=== PATIENT | female | born 1995 | race Caucasian/White ===

== ENCOUNTER 2021-02-21 20:37 | Emergency (ER) | payer OTHER ==
[2021-02-21] MEDS ORDERED: ACETAMINOPHEN 500 MG TABLET (FP) PO ONE (20:49)
[2021-02-21 21:03] VITALS: BP 136/66; PULSE 84; TEMP 98.6; BMI 28.6
== END 2021-02-21 21:30 | disposition home or self-care (01) ==
LOC: FER 20:37
DX: M94.0 Chondrocostal junction syndrome [Tietze] (principal); S20.219A Contusion of unspecified front wall of thorax, initial encounter; W22.8XXA Striking against or struck by other objects, initial encounter
CPT/HCPCS: 71046-TC-FY; 93005; 99284-25